=== PATIENT | male | born 1980 | race Two or more races ===

== ENCOUNTER 2022-12-28 09:23 | Emergency (ER) | payer OTHER ==
[~2022-12-28] VITALS: Ht 180.3 cm; Wt 86.2 kg
[2022-12-28 09:31] VITALS: BP 121/75; TEMP 98.5; O2SAT 98
[2022-12-28] MEDS ORDERED: NAPROXEN 250 MG TABLET ONE (10:09)
[2022-12-28] MEDS: NAPROXEN 500 MG TABLET PO SCH (10:10)
[2022-12-28] MEDS ORDERED: NAPR-1009 PO (10:35)
== END 2022-12-28 11:06 | disposition home or self-care (01) ==
LOC: ER 09:28
DX: S43.402A Unspecified sprain of left shoulder joint, initial encounter (principal); S20.212A Contusion of left front wall of thorax, initial encounter; W10.9XXA Fall (on) (from) unspecified stairs and steps, initial encounter; Y93.89 Activity, other specified; Y92.89 Other specified places as the place of occurrence of the external cause; Y99.8 Other external cause status
CPT/HCPCS: 71045-TC; 73030-TC